=== PATIENT | female | born 1945 | race Caucasian/White ===

== ENCOUNTER 2022-03-10 07:40 | Day surgery (SDC) | payer MEDICARE, OTHER ==
[2022-03-10] MEDS ORDERED: Propofol 200 MG/20 ML SDV IV ONE (07:41)
[2022-03-10] MEDS ORDERED: Lidocaine 1% PF 2 ML SDV INJECT ONE (07:41)
[2022-03-10] MEDS ORDERED: Lactated Ringers 1,000 ML IV SCH (07:45)
[2022-03-10] MEDS ORDERED: Sodium Chloride 0.9% 10 ML Syringe FLUSH PRN (07:45)
== END 2022-03-10 10:05 | disposition home or self-care (01) ==
LOC: FB.SDS 07:40
PROVIDERS: ATTEND Surgery
DX: Z12.11 Encounter for screening for malignant neoplasm of colon (principal); K57.30 Diverticulosis of large intestine without perforation or abscess without bleeding; I10 Essential (primary) hypertension; E78.5 Hyperlipidemia, unspecified; Z79.899 Other long term (current) drug therapy; Z98.890 Other specified postprocedural states; Z87.891 Personal history of nicotine dependence
CPT/HCPCS: 00812-QZ; J2704; J7120